=== PATIENT | female | born 2000 | race Caucasian/White ===

== ENCOUNTER 2024-02-12 21:19 | Emergency (ER) | payer OTHER, SELFPAY ==
--- NOTE | ~2024-02-12 | XR_ITS ---
CLINICAL HISTORY: cp 2 view chest x-ray Comparison: None Findings: The lungs are clear. Normal size heart. No acute fracture. IMPRESSION: 1. No acute findings. This document has been electronically signed by: Christiano Cervantes MD on 02/12/2024 22:48:09
--- NOTE | 2024-02-12 21:24 | ECG_ITS ---
Test Reason : CP Blood Pressure : / mmHG Vent. Rate : 076 BPM Atrial Rate : 076 BPM P-R Int : 150 ms QRS Dur : 102 ms QT Int : 394 ms P-R-T Axes : 078 075 056 degrees QTc Int : 443 ms Normal sinus rhythm with sinus arrhythmia RSR' or QR pattern in V1 suggests right ventricular conduction delay Borderline ECG No previous ECGs available Referred By: Generic ED Physician Electronically Signed By:Shawn Juarez
[2024-02-12 21:31] VITALS: BP 129/85; PULSE 80; RESP 19; TEMP 36.6; O2SAT 98; BMI 25.6
[2024-02-12 21:53] LABS: MANUAL DIFF FLAG NO
[2024-02-12 21:55] LABS: Basophils Percent Auto 0.6 % (0-2); Eosinophils Absolute Auto 0.1 X10*3/uL (0.0-0.4); Imm Gran Abs Auto 0.01 X10*3/uL (0.00-0.03); Imm Gran Pct Auto 0.2 % (0.0-0.4); Lymphocytes Percent Auto 32.6 % (20-40); Mean Corpuscular HGB Conc 34.2 g/dl (31.0-35.0); Mean Corpuscular Hemoglobin 28.4 pg (27.0-33.0); Mean Platelet Volume 10.4 fL (9.4-12.3); Monocytes Absolute Auto 0.5 X10*3/uL (0.1-1.2); Monocytes Percent Auto 8.7 % (2-11); Neutrophils Absolute Auto 3.5 x10*3/uL (2.0-8.3); Neutrophils Percent Auto 56.9 % (45-73); Platelet Count 252 X10*3/uL (160-400); Red Blood Count 4.58 X10*6/uL (4.20-5.50); Red Cell Distribution Width 13.3 % (11.0-16.0); White Blood Count 6.2 X10*3/uL (4.8-10.8)
[2024-02-12 21:56] LABS: Appearance Urine Clear; Color Urine Yellow; Glucose Urine UA Negative (Negative); Leukocyte Esterase Urine Moderate (2+) (Negative); Nitrite Urine Negative (Negative); Specific Gravity - Urine 1.015 (1.005-1.025); UMIC TRIGGER UACC YES; Urine Blood Negative (Negative); Urine Ketones Negative (Negative); Urine Protein Negative (Neg-Trace)
[2024-02-12 21:58] LABS: Bacteria Urine 1+ (None Seen); Hyaline Casts Urine 0-2 /LPF (0-2); RBC Urine 0-2 /HPF (0-2); UACC Culture Trigger YES; UPreg QC Valid YES; Urine Pregnancy NEGATIVE (NEGATIVE)
[2024-02-12 22:10] LABS: Anion Gap 17 (12-20); Blood Urea Nitrogen 11 mg/dL (9-16); Calcium 9.3 mg/dL (8.4-10.2); Carbon Dioxide 22 mmol/L (22-29); Chloride 105 mmol/L (96-108); Creatinine Clr Calc Pharmacy 91.6; Estimated Glomerular Filt Rate > 60; Glucose Random 146 mg/dL (60-115); Potassium 4.4 mmol/L (3.3-5.1); Sodium 140 mmol/L (135-145)
[2024-02-12 22:19] LABS: Troponin-I High Sensitivity < 2.7 ng/L (<3.5-17.0)
[2024-02-12 22:32] LABS: Influenza A PCR NEGATIVE (Negative); Influenza B PCR NEGATIVE (Negative); Resp Syncy Virus RNA Qual PCR NEGATIVE (Negative); SARS COV2 PCR INHOUSE NEGATIVE (Negative)
[2024-02-12 23:38] VITALS: BP 118/76; PULSE 66; RESP 16; TEMP 36.6; O2SAT 100
--- NOTE | 2024-02-13 01:33 | ED.CHESTPAIN ---
HPI - Chest Pain General Chief Complaint: Chest Pain Stated Complaint: chest pain/naseous Time Seen by Provider: 02/13/24 00:45 Source: patient Limitations: no limitations History of Present Illness ED Provider: Randi Anthony PA-C HPI narrative: 23-year-old otherwise healthy female presents with chest pain prior to arrival. Pain over left anterior chest was nonradiating. Patient states her chest felt tight and it was difficult to breathe, her symptoms were intermittent and transient. Pain also worsened with the palpation of chest wall. Patient asked her nurse, ?can you have chest pain from a broken heart?. Patient states she has recent emotional stress. Denies recent cough or cold symptoms. Patient also states that she has been having dysuria since [place] with increased urinary frequency. Denies abdominal pain, nausea, vomiting or fever. Related Data Previous Rx's ?Medication ?Instructions ?Recorded cephalexin 500 mg capsule 500 mg PO BID #14 caps 02/13/24 phenazopyridine 200 mg tablet 200 mg PO TID PRN pain #10 tabs 02/13/24 (Pyridium) Allergies Allergy/AdvReac Type Severity Reaction Status Date / Time No Known Allergies Allergy Verified 02/12/24 21:33 Review of Systems Review of Systems: Yes all other systems are reviewed and are negative Constitutional: Constitutional: Denies fatigue and Denies fever(s) Cardiovascular: Cardiovascular: Reports chest pain and Denies dyspnea Respiratory: Respiratory: Denies cough and Denies dyspnea Gastrointestinal: Gastrointestinal: Denies abdominal pain, Denies nausea and Denies vomiting Genitourinary: Genitourinary: Reports dysuria and Reports urinary urgency Endocrine: Endocrine: Denies fatigue [facility] Past Medical History Attestation statement: The following information was validated with the patient. Social History Social History Advance Directives: No Advance Directives Information Provided: Yes Do you have a plan to hurt others: No Plan Physical Exam Vital Signs: Vital Signs: Last Vital Signs Temp 97.8 F 02/12/24 23:38 Pulse 66 02/12/24 23:38 Resp 16 02/12/24 23:38 BP 118/76 02/12/24 23:38 Pulse Ox 100 02/12/24 23:38 O2 Del Method Room Air 02/12/24 23:38 BMI result Body Mass Index 25.6 Const: Other: Alert, well-appearing Orientation/consciousness: patient oriented x3 Resp: Effort & Inspection: normal respiratory effort Cardio: Other: Normal peripheral perfusion Skin: Other: Warm dry no rash Neuro: General: patient oriented x3, no focal motor deficits and CN's II-XI intact bilaterally Psych: Other: Cooperative Medical Decision Making Medical Decision Making MDM Narrative: 23-year-old otherwise healthy female presents with chest pain prior to arrival. Pain over left anterior chest was nonradiating. Patient states her chest felt tight and it was difficult to breathe, her symptoms were intermittent and transient. Pain also worsened with the palpation of chest wall. Patient asked her nurse, ?can you have chest pain from a broken heart?. Patient states she has recent emotional stress. Denies recent cough or cold symptoms. Patient also states that she has been having dysuria since [place] with increased urinary frequency. Denies abdominal pain, nausea, vomiting or fever. Problem: Emotional stress History: Per patient I have considered the following differential diagnoses: Chest wall strain, anxiety, PE, ACS, costochondritis , UTI Plan: I believe the patient was having some form of a panic attack given the nature of her symptoms in the setting of emotional stress. The patient has no risk factors for coronary artery disease, screening labs including a cardiac enzymes EKG and chest x-ray were obtained, her heart score is 0. Thought about PE given concurrent dyspnea, however she is not tachycardic, she has no risk factors for DVT, she is not hypoxic, essentially she is PERC negative. She has not had preceding viral syndrome to suggest costochondritis. Urine obtained, questionable UTI, given she is symptomatic I will treat. I have independently reviewed the following tests: Labs: No leukocytosis, not anemic, no electrolyte abnormality, not urine maybe infected EKG: Normal sinus rhythm, rate of 76, no ischemic changes no ectopy, QTC 443 Chest x-ray:IMPRESSION: 1. No acute findings. This document has been electronically signed by: Christiano Cervantes MD on 02/12/2024 22:48:09 Lab Data 02/12/24 21:51 02/12/24 21:51 Labs: Lab Results 02/12/24 Range/Units 21:51 WBC 6.2 (4.8-10.8) X10*3/uL RBC 4.58 (4.20-5.50) X10*6/uL Hgb 13.0 (12.0-16.0) g/dl Hct 38.0 (37.0-47.0) % MCV 83.0 (80.0-98.0) fL MCH 28.4 (27.0-33.0) pg MCHC 34.2 (31.0-35.0) g/dl RDW 13.3 (11.0-16.0) % Plt Count 252 (160-400) X10*3/uL MPV 10.4 (9.4-12.3) fL Immature Gran % (Auto) 0.2 (0.0-0.4) % Neut % (Auto) 56.9 (45-73) % Lymph % (Auto) 32.6 (20-40) % [place] % (Auto) 8.7 (2-11) % Eos % (Auto) 1.0 (0-4) % Baso % (Auto) 0.6 (0-2) % Lymph # (Auto) 2.0 (1.2-4.9) X10*3/uL [place] # (Auto) 0.5 (0.1-1.2) X10*3/uL Eos # (Auto) 0.1 (0.0-0.4) X10*3/uL Baso # (Auto) 0.0 (0.0-0.2) X10*3/uL Abs Immat Gran (auto) 0.01 (0.00-0.03) X10*3/uL Absolute Neuts (auto) 3.5 (2.0-8.3) x10*3/uL Absolute Nucleated RBC 0.000 (0.0-0.012) X10*3/uL Nucleated RBC % (auto) 0.0 (0.0-0.2) /100WBC Sodium 140 (135-145) mmol/L Potassium 4.4 (3.3-5.1) mmol/L Chloride 105 (96-108) mmol/L Carbon Dioxide 22 (22-29) mmol/L Anion Gap 17 (12-20) BUN 11 (9-16) mg/dL Creatinine 0.85 (0.5-1.4) mg/dL Estim Creat Clear Calc 91.6 Estimated GFR > 60 Random Glucose 146 H (60-115) mg/dL Calcium 9.3 (8.4-10.2) mg/dL Troponin I High Sens < 2.7 (<3.5-17.0) ng/L Urine Color Yellow Urine Appearance Clear Urine pH 7.0 (5.0-9.0) Ur Specific [place] 1.015 (1.005-1.025) Urine Protein Negative (Neg-Trace) mg/dL Urine Glucose (UA) Negative (Negative) mg/dL Urine Ketones Negative (Negative) mg/dL Urine Blood Negative (Negative) Urine Nitrite Negative (Negative) Ur Leukocyte Esterase Moderate (2+) H (Negative) Urine RBC 0-2 (0-2) /HPF Urine WBC 11-20 H (0-5) /HPF Ur Squamous Epith Cells 3-5 (0-2) /HPF Urine Bacteria 1+ (None Seen) Hyaline Casts 0-2 (0-2) /LPF Urine Test NEGATIVE (NEGATIVE) Influenza Type A (PCR) NEGATIVE (Negative) Influenza Type B (PCR) NEGATIVE (Negative) RSV RNA Qual (PCR) NEGATIVE (Negative) SARS-CoV-2 RNA (RT-PCR) NEGATIVE (Negative) Discharge Plan Discharge Clinical Impression: Left-sided chest wall pain, Urinary tract infection Patient Disposition: Home, Self-Care Instructions: Urinary Tract Infection in Women (ED), Chest Wall Pain (ED) Additional Instructions: All of your labs including a cardiac enzymes were normal, it is questionable that you have a urinary tract infection, we will treat it. Take the cephalexin as directed this is an antibiotic. Use the Pyridium as needed, this is an medications specific for bladder pain. To note, it will turn your urine fluorescent orange. It will resolve. In regard to the chest pain, this is not cardiac, this is chest wall pain likely induced by your recent emotional stress. Follow up with your primary care provider as needed. Prescriptions: New cephalexin 500 mg capsule 500 mg PO BID Qty: 14 0RF phenazopyridine [Pyridium] 200 mg tablet 200 mg PO TID PRN (Reason: pain) Qty: 10 0RF Print Language: [place]
[2024-02-13] MEDS: cephALEXin 500 MG CAPSULE PO (02:04)
[2024-02-13] MEDS: Phenazopyridine HCL 200 MG TABLET PO (02:04)
[2024-02-13 02:10] VITALS: BP 118/76; PULSE 66; RESP 16; TEMP 36.6; O2SAT 100
== END 2024-02-13 02:11 | disposition home or self-care (01) ==
PROVIDERS: Emergency Provider Emergency Medicine
DX: R07.89 Other chest pain (principal); N39.0 Urinary tract infection, site not specified; R11.0 Nausea; R06.02 Shortness of breath; Z03.818 Encounter for observation for suspected exposure to other biological agents ruled out; Z79.899 Other long term (current) drug therapy
CPT/HCPCS: 0241U; 36415; 71046; 80048; 81001; 81025; 84484; 85025; 87086; 87147; 93005; 99283; 99285

== ENCOUNTER → 2024-02-12 21:24 | Outpatient (BNV) | payer OTHER, SELFPAY | PROVIDERS: Emergency Provider Emergency Medicine; Visit Provider Internal Medicine Cardiovascular Disease | DX: I49.9 Cardiac arrhythmia, unspecified (principal) | CPT/HCPCS: 93010 ==

== ENCOUNTER → 2024-02-12 22:10 | Outpatient (BNV) | payer MEDICAID, SELFPAY | DX: R07.9 Chest pain, unspecified (principal) | CPT/HCPCS: 71046 ==

== ENCOUNTER 2024-02-21 04:32 | Emergency (ER) | payer OTHER, SELFPAY ==
--- NOTE | ~2024-02-21 | XR_ITS ---
CLINICAL HISTORY: flu like symptoms 2 view chest x-ray Comparison: 02/12/2024 Findings: The lungs are clear. Heart size is normal. No acute fracture. IMPRESSION: 1. No acute findings. This document has been electronically signed by: Christiano Cervantes MD on 02/21/2024 05:20:09
[2024-02-21 04:35] VITALS: BP 119/79; PULSE 84; RESP 16; TEMP 37.1; O2SAT 98; BMI 25.4
[2024-02-21 05:08] LABS: IDNOW Serial# 58CA691E; Strep A Nucleic Acid Negative (Negative)
[2024-02-21 05:39] LABS: Influenza A PCR NEGATIVE (Negative); Influenza B PCR NEGATIVE (Negative); Resp Syncy Virus RNA Qual PCR NEGATIVE (Negative); SARS COV2 PCR INHOUSE NEGATIVE (Negative)
--- NOTE | 2024-02-21 07:18 | ED.URI ---
HPI - URI/Sore Throat General Chief Complaint: Upper Respiratory Symptoms Stated Complaint: cold symptoms Time Seen by Provider: 02/21/24 07:02 Source: patient and family Mode of arrival: ambulatory Limitations: no limitations History of Present Illness ED Provider: Joan Evans APRN HPI Narrative: 23-year-old female with no known medical history presents the ER with complaints of 2-3 days of cough, sore throat, runny nose and chest discomfort with coughing. Patient denies shortness breath, vomiting, diarrhea, skin rash, neck pain, neck stiffness, headache, leg swelling/leg pain. Patient is here with her brother who has similar symptoms. Related Data Previous Rx's ?Medication ?Instructions ?Recorded cephalexin 500 mg capsule 500 mg PO BID #14 caps 02/13/24 phenazopyridine 200 mg tablet 200 mg PO TID PRN pain #10 tabs 02/13/24 (Pyridium) Allergies Allergy/AdvReac Type Severity Reaction Status Date / Time No Known Allergies Allergy Verified 02/21/24 04:37 Review of Systems Review of Systems: Yes all other systems are reviewed and are negative Constitutional: Constitutional: Reports no additional constitutional complaints, Denies body ache(s), Denies chills, Denies fever(s), Denies headache(s) and Denies weakness Eyes: Eyes: Reports no additional eye complaints and Denies change in vision ENT: Reports system reviewed and no additional complaints, except as documented, Denies dizziness, Denies headache(s), Denies nasal congestion, Reports nasal discharge, Denies neck pain and Reports sore throat Cardiovascular: Cardiovascular: Reports no additional cardiovascular complaints, Reports chest pain, Denies leg edema and Denies dyspnea Respiratory: Respiratory: Reports no additional respiratory complaints, Reports cough and Denies dyspnea Gastrointestinal: Gastrointestinal: Reports no additional gastrointestinal complaints, Denies abdominal pain, Denies diarrhea, Denies nausea and Denies vomiting Genitourinary: Genitourinary: Reports no additional female genitourinary complaints and Denies urinary incontinence Musculoskeletal: Musculoskeletal: Reports no additional musculoskeletal complaints, Denies back pain, Denies arthralgias, Denies joint swelling, Denies neck pain, Denies numbness and Denies tingling Integumentary/Breasts: Skin/Breast: Reports system reviewed and no additional complaints, except as docu and Denies rash Neurologic: Reports system reviewed and no additional complaints, except as documented, Denies Abnormal speech present, Denies dizziness, Denies headache(s), Denies numbness, Denies tingling and Denies weakness PMFSH Past Medical History Attestation statement: The following information was validated with the patient. Source: old records reviewed and nursing notes reviewed Social History Social History Advance Directives: No Advance Directives Information Provided: Yes Do you have a plan to hurt others: No Plan Physical Exam Vital Signs: Vital Signs: Last Vital Signs Temp 98.7 F 02/21/24 04:35 Pulse 84 02/21/24 04:35 Resp 16 02/21/24 04:35 BP 119/79 02/21/24 04:35 Pulse Ox 98 02/21/24 04:35 O2 Del Method Room Air 02/21/24 04:35 BMI result Body Mass Index 25.4 Const: General: cooperative, healthy appearing, comfortable and no acute distress Orientation/consciousness: patient oriented x3 Limitations: no limitations HEENT: Head: Yes normal to inspection Ears: hearing grossly normal bilaterally and TM's normal bilaterally General nose exam: Normal external nose present Face and sinus: Yes normal facial exam Mouth: Normal oral and palatal mucosa present Throat: Yes posterior oropharynx normal, Yes tonsils normal and Yes uvula midline Eyes: General: appearance normal, both eyes and all related structures Pupils: Equal, round and reactive pupils present Neck: Neck: Yes normal visual inspection, Yes full ROM, Yes no lymphadenopathy and Yes no meningeal signs Chest: Chest palpation & inspection: normal inspection of the chest Resp: Effort & Inspection: normal respiratory effort Auscultation: clear to auscultation bilaterally Cardio: Rate: regular rate Rhythm: regular rhythm Peripheral pulses: Peripheral pulses 2+ throughout GI: Inspection: Yes normal to inspection Palpation (GI): Soft to palpation and nontender Auscultation: normal bowel sounds Back/Spine/Pelvis: Thoracic/Lumbar Spine: thoracic and lumbar spine normal to inspection Skin: General skin exam: no rashes or lesions noted Neuro: General: patient oriented x3, no meningeal signs, no focal motor deficits and normal sensation to monofilament Cranial nerves: Yes Equal, round and reactive pupils present Cognition (Neuro): normal cognition Speech: No Abnormal speech present Gait exam (Neuro): Normal gait present Motor exam (neuro): 5/5 motor strength present throughout Extrem: General: Yes normal to inspection, Yes no pedal edema and Yes no calf tenderness Course Course Course Narrative: Viral testing is negative. Chest x-ray shows no acute finding. Likely viral syndrome. However brother who is here as the patient is flu A positive so patient may also be flu A positive. Reviewed care for flu at home. Reviewed worrisome signs and symptoms of when to return to the emergency room. Comfortable plan for discharge home. Medical Decision Making Medical Decision Making [facility] Narrative: 23-year-old female with no known medical history presents the ER with complaints of 2-3 days of cough, sore throat, runny nose and chest discomfort with coughing. Vitals are stable. Exam is benign Will send viral testing, obtain chest x-ray Differential Diagnosis Differential Diagnoses: The differential diagnosis associated with the presentation includes Viral syndrome, chest wall strain, pneumonia, influenza Low suspicion for PE-perc negative, ACS-atypical HPI Admission/Observation Consideration of admission/observation: Escalation of care including admission/observation considered Viral syndrome with no hypoxia or tachypnea requiring supplemental oxygen and or admission Lab Data [facility] Lab Attestation statement: I reviewed the patient's lab results. Labs: Lab Results 02/21/24 Range/Units 04:46 Influenza Type A (PCR) NEGATIVE (Negative) Influenza Type B (PCR) NEGATIVE (Negative) RSV RNA Qual (PCR) NEGATIVE (Negative) SARS-CoV-2 RNA (RT-PCR) NEGATIVE (Negative) S. pyogenes GrpA MARLIN Negative (Negative) Independent Interpretation I performed an independent interpretation of an: Plain X-Ray Interpretation: I independently viewed the x-ray and agree with the radiology report Radiology Impression Discussion of test interpretation with radiology: I have reviewed the radiologist's reading. Radiologist Impression: [address] [address] XRay Report Signed Patient: Henry Sotelo MR#: [id number] : 2000 Acct:[id number] Age/Sex: 23 / F ADM Date: 02/21/24 Loc: .ED Attending Dr: Ordering Physician: Generic ED Physician Date of Service: 02/21/24 Procedure(s): XR chest 2V Accession Number(s): [id number] cc: Generic ED Physician; REMY VELAZQUEZ MD~ CLINICAL HISTORY: flu like symptoms 2 view chest x-ray Comparison: 02/12/2024 Findings: The lungs are clear. Heart size is normal. No acute fracture. IMPRESSION: 1. No acute findings. This document has been electronically signed by: Christiano Cervantes MD on 02/21/2024 05:20:09 Independent Historian Clinical information obtained from an independent historian. History obtained from or confirmed by: Other (Brother) Tests considered The following testing was considered but not selected: Perc is 0, no need for D-dimer or CTA Prescription Management I considered prescription management with: Antibiotic Discharge Plan Discharge Clinical Impression: Viral infection Patient Disposition: Home, Self-Care Instructions: Viral Syndrome (ED) Additional Instructions: At this time your testing for flu, COVID, RSV are negative Your x-ray shows no signs of pneumonia Take Motrin or Tylenol for any pain or fever Increase fluids, rest Return for any worsening symptoms Prescriptions: No Action cephalexin 500 mg capsule 500 mg PO BID Qty: 14 0RF phenazopyridine [Pyridium] 200 mg tablet 200 mg PO TID PRN (Reason: pain) Qty: 10 0RF Referrals: Physician,Unknown J [Primary Care Provider] - 1 week Stand Alone Forms: Work/School Release Print Language: Czech
[2024-02-21 07:45] VITALS: BP 119/79; PULSE 84; RESP 16; TEMP 37.1; O2SAT 98
== END 2024-02-21 07:45 | disposition home or self-care (01) ==
PROVIDERS: Emergency Provider Emergency Medicine
DX: B34.9 Viral infection, unspecified (principal); R05.9 Cough, unspecified; J02.9 Acute pharyngitis, unspecified; R07.89 Other chest pain; Z03.818 Encounter for observation for suspected exposure to other biological agents ruled out
CPT/HCPCS: 0241U; 71046; 87651; 99282; 99283

== ENCOUNTER → 2024-02-21 04:35 | Outpatient (BNV) | payer OTHER, SELFPAY | PROVIDERS: PCP Internal Medicine; Visit Provider Specialist | DX: R09.81 Nasal congestion (principal); R05.9 Cough, unspecified; Z20.828 Contact with and (suspected) exposure to other viral communicable diseases | CPT/HCPCS: 71046 ==

== ENCOUNTER 2024-07-20 09:19 | Emergency (ER) | payer OTHER, SELFPAY ==
[2024-07-20 09:45] VITALS: BP 119/67; PULSE 106; RESP 17; TEMP 36.9; O2SAT 98; BMI 21.9
[2024-07-20 10:00] VITALS: BP 107/59; PULSE 92; TEMP 36.7; O2SAT 97
--- NOTE | 2024-07-20 10:00 | ED_ITS ---
HPI - URI/Sore Throat General Chief Complaint: Headache Stated Complaint: Sore Throat Headache Runny Nose Cough Time Seen by Provider: 07/20/24 09:47 Source: patient and family Mode of arrival: ambulatory Limitations: no limitations History of Present Illness ED Provider: ARCADIO SALAZAR Narrative: 23 yo female with no sig PMH no recent travel or sick contacts who reports n/v cough, runny nose, R ear pain and subjective fevers and chills starting yesterday. She has no abdominal pain and no diarrhea. She has not tried any OTC medications. She states she has a headache as well. No prior covid vaccines. MD elicited complaint: fever, cough, sore throat and rhinorrhea Onset (ago): day(s) (1) Consistency: constant Severity: moderate Description of mucous: clear Able to tolerate fluids by mouth: Yes Exacerbating factors: swallowing and changing head position Associated symptoms: fever, chills, headache, sore throat and ear pain Treatments prior to arrival: none Related Data Previous Rx's ?Medication ?Instructions ?Recorded cephalexin 500 mg capsule 500 mg PO BID #14 caps 02/13/24 phenazopyridine 200 mg tablet 200 mg PO TID PRN pain #10 tabs 02/13/24 (Pyridium) amoxicillin 500 mg capsule 500 mg PO TID 7 days #21 caps 07/20/24 ibuprofen 600 mg tablet 600 mg PO Q6H PRN pain #30 tabs 07/20/24 ondansetron 4 mg disintegrating 4 mg PO Q8H PRN nausea and 07/20/24 tablet vomiting #20 tabs Allergies Allergy/AdvReac Type Severity Reaction Status Date / Time No Known Allergies Allergy Verified 07/20/24 09:47 Review of Systems Review of Systems: Constitutional : positive Fever, positive Chills, positive fatigue, positive Malaise ENT/Mouth : positive sore throat, positive runny nose Eyes: No Discharge Cardiovascular : No Chest Pain, No SOB Respiratory : No Cough, No Sputum Gastrointestinal : pos Nausea, pos Vomiting, No Diarrhea Genitourinary : No Dysuria, No Urinary Frequency Musculoskeletal : positive Myalgia Skin : No rash Neuro : pos Headache All other systems reviewed and are negative PMFSH Past Medical History Attestation statement: The following information was validated with the patient. Source: old records reviewed Medical History (Updated 07/20/24 @ 10:24 by Larissa Kulkarni DO) No pertinent past medical history Social History Social History (Updated 07/20/24 @ 10:15 by Larissa Kulkarni DO) Patient Tobacco Use Status: Never used Tobacco Smoked in Last 30 Days: No Use of substances other than those prescribed or required for medical reasons: No Advance Directives: No Advance Directives Information Provided: Yes Do you have a plan to hurt others: No Plan Physical Exam Vital Signs: Vital Signs: Last Vital Signs Temp 98.1 F 07/20/24 10:00 Pulse 92 07/20/24 10:00 Resp 17 07/20/24 09:45 BP 107/59 L 07/20/24 10:00 Pulse Ox 97 07/20/24 10:00 O2 Del Method Room Air 07/20/24 09:45 BMI result Body Mass Index 21.9 Appearance: Alert. Oriented X3. No acute distress. Eyes: Pupils equal, round and reactive to light. ENT: Pharynx bilateral mild tonsilar swelling with redness but no exudates and uvula is midline, R TM redness, bulging and thin yellow effusion, no perforation , L TM normal Neck: Normal inspection. Neck supple. CVS: tachycardic heart rate and rhythm. Pulses normal. Respiratory: No respiratory distress. Breath sounds normal. Abdomen: Soft and nontender. Skin: Skin warm and dry. Normal skin color. Extremities: No lower extremity edema. Neuro: Oriented X 3. No motor deficit. No sensory deficit. CN2-12 intact Medications Administered Discontinued Medications Generic Name Dose Route Start Last Admin Trade Name Freq PRN Reason Stop Dose Admin Acetaminophen 975 mg 07/20/24 09:58 07/20/24 10:07 Acetaminophen 325 Mg Tablet PO 07/20/24 09:59 975 mg ONCE ONE Administration Amoxicillin 500 mg 07/20/24 10:19 07/20/24 10:29 Amoxicillin 500 Mg Capsule PO 07/20/24 10:20 500 mg ONCE ONE Administration Ketorolac Tromethamine 30 mg 07/20/24 09:58 07/20/24 10:08 Ketorolac Tromethamine 30 Mg/Ml Vial IM 07/20/24 09:59 30 mg ONCE ONE Administration Ondansetron HCl 4 mg 07/20/24 09:58 07/20/24 10:08 Ondansetron Odt 4 Mg Tab.Rapdis TRANSLINGU 07/20/24 09:59 4 mg ONCE ONE Administration Medical Decision Making Medical Decision Making [facility] Narrative: 23 yo female with no sig PMH here with c/o URI symptoms x 1 day on exam she has R AOM she has no signs of meningitis neck is soft and supple, she has a constellation of viral symptoms. Her throat is benign at this time I am going to obtain strep swab, viral panel and start on amoxicillin 500mg TID x 7 days for AOM. She will be given strict precautions to return. She has no CP/SOB. Suspect tachycardia is due to fevers/viral infection. Differential Diagnosis Differential Diagnoses: The differential diagnosis associated with the presentation includes viral syndrome, strep throat, R ear AOM Admission/Observation Consideration of admission/observation: Escalation of care including admission/observation considered feels much better stable for DC with outpatient therapy Lab Data [facility] Lab Attestation statement: I reviewed the patient's lab results. Labs: Lab Results 07/20/24 Range/Units 09:58 Influenza Type A (PCR) NEGATIVE (Negative) Influenza Type B (PCR) NEGATIVE (Negative) RSV RNA Qual (PCR) NEGATIVE (Negative) SARS-CoV-2 RNA (RT-PCR) NEGATIVE (Negative) S. pyogenes GrpA MARLIN Negative (Negative) Independent Historian Clinical information obtained from an independent historian. History obtained from or confirmed by: Other (sister) Prescription Management I considered prescription management with: Antibiotic and Other Discharge Plan Discharge Clinical Impression: Acute otitis media Qualifiers: Otitis media type: suppurative Laterality: right Recurrence: non-recurrent Spontaneous tympanic membrane rupture: without spontaneous rupture Qualified Code(s): H66.001 - Acute suppurative otitis media without spontaneous rupture of ear drum, right ear Patient Disposition: Home, Self-Care Instructions: Ear Infection (ED) Additional Instructions: rest and stay hydrated return for any worsening symptoms or concerns alternate tylenol and motrin for fevers complete all antibiotics negative for covid, flu, rsv, strep throat On amoxicillin, softer bowel movements are to be expected. Call your provider if you move your bowels more than 4 times a day, your bowel movements are almost all liquid, or you get a rash.? next dose of motrin can be at 6pm Prescriptions: New amoxicillin 500 mg capsule 500 mg PO TID 7 Days Qty: 21 0RF ibuprofen 600 mg tablet 600 mg PO Q6H PRN (Reason: pain) Qty: 30 0RF ondansetron 4 mg tablet,disintegrating 4 mg PO Q8H PRN (Reason: nausea and vomiting) Qty: 20 0RF No Action cephalexin 500 mg capsule 500 mg PO BID Qty: 14 0RF phenazopyridine [Pyridium] 200 mg tablet 200 mg PO TID PRN (Reason: pain) Qty: 10 0RF Stand Alone Forms: Work/School Release Print Language: Lao
[2024-07-20] MEDS: Acetaminophen 325 MG TABLET 975 MG PO (10:07)
[2024-07-20] MEDS: Ondansetron ODT 4 MG TAB.RAPDIS TRANSLINGU (10:08)
[2024-07-20] MEDS: Ketorolac Tromethamine 30 MG/ML VIAL IM (10:08)
[2024-07-20 10:16] LABS: IDNOW Serial# 55D5AD1C; Strep A Nucleic Acid Negative (Negative)
--- OUTSIDE RECORDS SUMMARY | 2024-07-20 10:26 | XMS_ITS | Clinical Summary ---
Author Organization [facility] Address [address] [place] [address] Phone Care Team Providers [employer] Name Role Phone Physician, Pcp Unknown Primary Care Provider Cecilia vailable Allergies No known active allergies Family History Medical History Relation Name Comments Prostate cancer Daughter 1 Hyperlipidemia Father Prostate cancer Maternal Grandfather Arthritis Maternal Grandmother Anemia Mother Arthritis Mother Depression Mother Hyperlipidemia Mother Hypertension Mother Alcohol/Drug Paternal Grandfather Allergies Paternal Grandmother Thyroid disease Sister 1 Relation Name Status Comments Daughter 1 Daughter 2 Father Maternal Grandfather Maternal Grandmother Mother Paternal Grandfather Paternal Grandmother Sister 1 Sister 2 Social History Tobacco Use Types Packs/Day Years Used Date Smoking Tobacco: Never Alcohol Use Standard Drinks/Week Comments Not Asked 0 (1 standard drink = 0.6 oz pur e alcohol) Comments Unknown Sex and Gender Information Value Date Recorded Sex Assigned at Not on file Legal Sex Female 2:55 AM EST Gender Identity Not on file Sexual Orientation Not on file Obstetrics History Last Filed Vital Signs Vital Sign Reading Time Taken Comments Blood Pressure 129/84 02/12/2024 7:47 PM EST Pulse 77 02/12/2024 7:47 PM EST Temperature 36.8 ??C (98.2 ??F) 02/12/2024 7:47 PM ES T Respiratory Rate 16 02/12/2024 7:47 PM EST Oxygen Saturation 100% 02/12/2024 7:47 PM EST Inhaled Oxygen Concentration - - Weight 63 kg (139 lb) 02/12/2024 7:47 PM EST Height 157.5 cm (5' 2 ) 02/12/2024 7:47 PM EST Body Mass Index 25.42 02/12/2024 7:47 PM EST Plan of Treatment Health Maintenance Due Date Last Done Comments Gonorrhea/Chlamydia Screening 2002 Meningococcal B Vaccine (1 of 2 - Standard) 2018 Annual Well Child Visit (3-21 years old) 01/19/2022 09/23/2013, 06/10/2012 Depression Screening 01/19/2022 HIV Screening 01/19/2022 Hepatitis C Screening 01/19/2022 Social Influencers of Health Screening 01/19/2022 COVID-19 Vaccine ( season) 2023 Cervical Cancer Screening: Pap Smear 11/20/2023 DTaP,Tdap,and Td Vaccines (7 - Td or Tdap) 06/13/2024 06/13/2014, 01/06/2007, 02/02/2004, Additional history exists Influenza Vaccine (Season Ended) 2024 01/09/2017, 10/25/2015, 11/09/2014, Additional history exists HIB Vaccines Completed 02/02/2004, 01/16, 05/10/2003, Additional history exists Pneumococcal Vaccine: Pediatrics (0 to 5 Years) and At-Risk Patients (6 to 64 Years) Completed 02/02/2004, 05/10/2003, 03/08/2003, Additional history exists Hepatitis B Vaccines Completed 03/25/2004, 01/16/2003, 2002 IPV Vaccines Completed 01/06/2007, 01/16, 05/10/2003, Additional history exists MMR Vaccines Completed 01/06/2007, 02/02/2004 Varicella Vaccines Completed 12/16/2007, 03/25/2004 HPV Vaccines Completed 06/15/2015, 07/18, 06/13/2014 Hepatitis A Vaccines Completed 07/06/2017, 06/17/19 17 Meningococcal ACWY Vaccine Completed 04/13/2020, RSV Immunization Patients Under 20 months Aged Out No longer eligible based on patient's age to complete this topic Insurance MEDICAID ADVANTAGE Care Teams [employer] Relationship Specialty Start Date End Date Physician, Pcp Unknown PCP - General 02/12/24
[2024-07-20] MEDS: Amoxicillin 500 MG CAPSULE PO (10:29)
[2024-07-20 10:42] LABS: Influenza A PCR NEGATIVE (Negative); Influenza B PCR NEGATIVE (Negative); Resp Syncy Virus RNA Qual PCR NEGATIVE (Negative); SARS COV2 PCR INHOUSE NEGATIVE (Negative)
[2024-07-20 11:25] VITALS: BP 107/59; PULSE 92; RESP 16; TEMP 36.7; O2SAT 97
== END 2024-07-20 11:26 | disposition home or self-care (01) ==
PROVIDERS: Emergency Provider Emergency Medicine
DX: H66.001 Acute suppurative otitis media without spontaneous rupture of ear drum, right ear (principal); R11.2 Nausea with vomiting, unspecified; R05.9 Cough, unspecified; R09.89 Other specified symptoms and signs involving the circulatory and respiratory systems; R51.9 Headache, unspecified; Z03.818 Encounter for observation for suspected exposure to other biological agents ruled out
CPT/HCPCS: 0241U; 87651; 96372; 99284; J1885